=== PATIENT | male | born 1940 | race Caucasian/White ===

== ENCOUNTER → 2017-08-31 | Outpatient (CLI) | payer MEDICARE | END | disposition home or self-care (01) | LOC: PCVCIMAG 10:24 | DX: I35.1 Nonrheumatic aortic (valve) insufficiency (principal); I10 Essential (primary) hypertension; I48.0 Paroxysmal atrial fibrillation; R09.89 Other specified symptoms and signs involving the circulatory and respiratory systems | CPT/HCPCS: 93306; 93880 ==

== ENCOUNTER → 2017-09-20 | Outpatient (CLI) | payer MEDICARE | END | disposition home or self-care (01) | LOC: PCVCCLINIC 10:13 | DX: I10 Essential (primary) hypertension (principal); I51.7 Cardiomegaly; I35.1 Nonrheumatic aortic (valve) insufficiency | CPT/HCPCS: 80061; 93005; G0463 ==

== ENCOUNTER → 2017-10-07 | Outpatient (CLI) | payer MEDICARE ==
--- NOTE | 2017-10-07 16:09 | PCVCIMAG ---
APPROVED REPORT Study performed: 10/07/2017 14:38:57 Exam: Stress Echocardiogram Indication: Hypertension, LVH, AI, PULM HTN Patient Location: Echo lab Stress Nurse: Carola Johnson RN Room #: 1 Status: routine Ht: 5 ft 10 in HR: 61 bpm BP: 170/100 mmHg Rhythm: NSR Medical History Medical History: HTN, LVH Cardiac Risk Factors: HTN,pulm htn,ai Pretest Chest Pain Characteristics: No chest pain Exercise History: Physically active Procedure The patient underwent an Exercise Stress Test using the Renee Protocol. Blood pressure, heart rate, and EKG were monitored. An Echocardiogram was performed by geodetic technician in four stages in quad fashion. At peak stress, four selected images were obtained and placed side by side with resting images for comparison. Stress Test Details Stress Test: Exercise stress testing was performed using a Renee protocol. HR Resting HR: 61 bpmMax Heart Rate (APMHR): 142 bpm Max HR Achieved: 133 bpmTarget HR (85% APMHR): 120 bpm % of APMHR: 93 Recovery HR: 75 bpm HR response to stress: Normal HR response to stress BP Resting BP: 170/100 mmHg Max BP: 218/92 mmHg Recovery BP: 190/90 mmHg ECG Resting ECG: Sinus Rhythm Stress ECG: Sinus Rhythm ST Change: Non-ischemic Arrhythmia: rare PVCs and PVC couplets Recovery ECG: Sinus Rhythm Recovery ST Change: Non-ischemic Recovery Arrhythmia: None Clinical Reason for Termination: Maximal effort Stress Symptoms: none Exercise duration: 8 min 09 sec Highest Stage Achieved: Stage 3: 3.4 mph at 14% grade. Exercise capacity: 10.1 METs Overall Exercise Capacity for Age: Normal Angina Score: None Stress ECG Conclusion The patient exercised according to the RENEE protocol for 8:09 mins; achieving a work level of 10.1 METS. The resting heart rate of 61 bpm rani to a maximum heart rate of 133 bpm. This value represent 93% of the maximal, age-predicted heart rate. The resting blood pressure of 170/100 mmHg, rani to a maximum blood pressure of 218/92 mmHg. The exercise test was stopped due to fatigue . Pre-Stress Echo The resting Echocardiogram showed normal left ventricular contractility with an estimated Ejection Fraction of about 55-60%. Normal wall motion in all segments on baseline images. Post-Stress Echo The stress Echocardiogram showed normal left ventricular contractility with an estimated Ejection Fraction of about 65-70%. Normal augmentation of wall motion in all segments on post stress images. Clinical No clinical or ECG evidence for ischemia. Conclusion Clinical Response: Non-ischemic Exercise Capacity: Average Stress ECG Response: Non-ischemic Stress Echo Images: Non-ischemic No clinical, EKG or echocardiographic evidence for ischemia. No echocardiographic evidence for exercise induced ischemia. Normal stress echocardiogram with maximal exercise stress. <Conclusion> No clinical, EKG or echocardiographic evidence for ischemia. No echocardiographic evidence for exercise induced ischemia. Normal stress echocardiogram with maximal exercise stress.
== END | disposition home or self-care (01) ==
LOC: PCVCIMAG 12:00
PROVIDERS: ATTEND Internal Medicine Cardiovascular Disease
DX: I10 Essential (primary) hypertension (principal); I35.1 Nonrheumatic aortic (valve) insufficiency; I47.1 Supraventricular tachycardia; I27.20 Pulmonary hypertension, unspecified
CPT/HCPCS: 93325; 93351